=== PATIENT | female | born 1975 | race Caucasian/White ===

== ENCOUNTER 2016-09-14 13:00 | Emergency (ER) | payer OTHER ==
--- NOTE | 2016-09-14 13:21 | ED Physician Documentation ---
PD HPI UPPER EXT INJURY - Stated complaint Stated Complaint: R SHOULDER PX - Chief complaint Chief Complaint: Ext Problem - History obtained from History obtained from: Patient - History of Present Illness Location: Right, Shoulder Type of injury: Other (onset without particular injury.). No: Fall, Twist Timing - onset: Other (onset 4-5 days ago without particular injury, but does use mouse often for work and does not adjust chair height for it.) Timing - duration: Days (1-2) Timing - details: Gradual onset, Still present Improved by: Rest Worsened by: Moving, Palpating Associated symptoms: No: Weakness, Numbness, Swelling Similar symptoms before: Has not had sx before Recently seen: Not recently seen Review of Systems Constitutional: denies: Fever, Chills Skin: denies: Rash, Lesions Musculoskeletal: denies: Neck pain, Back pain Neurologic: denies: Focal weakness, Numbness PD PAST MEDICAL HISTORY - Past Medical History Past Medical History: Yes Endocrine/Autoimmune: HyPOthyroidism Musculoskeletal: None - Past Surgical History Past Surgical History: Yes Ortho: Other /RECEIVABLES SPECIALIST: section - Present Medications Home Medications: Ambulatory Orders Medication Instructions Recorded Confirmed Levothyroxine [Synthroid] 112 mcg PO QDAC 09/14/16 09/14/16 Naproxen 375 mg PO BID #20 tablet 09/14/16 Tramadol HCl 50 mg PO Q6H PRN #15 tablet 09/14/16 - Allergies Allergies/Adverse Reactions: Allergies Allergy/AdvReac Type Severity Reaction Status Date / Time No Known Drug Allergies Allergy Verified 09/14/16 13:08 - Social History Does the pt smoke?: No Smoking Status: Never smoker Does the pt drink ETOH?: No Does the pt have substance abuse?: No - Immunizations Immunizations are current?: No Immunizations: TDAP >10years/unknown - POLST Patient has POLST: No PD ED PE NORMAL - Vitals Vital signs reviewed: Yes - General General: Alert and oriented X 3, Well developed/nourished - Neck Neck: Supple, no meningeal sign, No bony TTP, No adenopathy - Cardiac Cardiac: RRR, No murmur - Respiratory Respiratory: Clear bilaterally - Extremities Extremities: Other (right shoulder with tenderness anteriorly and at mid/end clavicle. No rash nor sores. Rotator cuff movements do not hurt. Pain with abduction and with pushing hand against resistance. ) - Neuro Neuro: No motor deficit, No sensory deficit Results - Vitals Vitals: Oxygen O2 Source Room air - Rads (name of study) clavicle Radiology: Prelim report reviewed, EMP read contemporaneously (normal) PD MEDICAL DECISION MAKING - ED course Complexity details: reviewed results, considered differential (presume tendonitis, and does not seem rotator cuff but more larger muscle to front shoulder. Xray okay of clavicle. Not focally tender at AC. ), d/w patient Departure - Departure Disposition: 01 Home, Self Care Clinical Impression: Right anterior shoulder pain, Tendonitis of shoulder, right Condition: Stable Record reviewed to determine appropriate education?: Yes Instructions: ED Sprain Shoulder Follow-Up: Stephenie Curtis MD [Provider Admit Priv/Credential] - Prescriptions: Naproxen 375 mg PO BID #20 tablet Tramadol HCl 50 mg PO Q6H PRN #15 tablet PRN Reason: Pain Comments: Continue Ibuprofen 2-3 times daily or could try naproxen twice daily instead. Add Tylenol and/or Tramadol as needed for pains. Be sure your seat is at a good height for your shoulder at work (should be in natural height/position as if you wer just standing with shoulders relaxed and then bent elbow up). Recheck if not better over the next week. At least one of your blood pressure readings in the ER today was elevated above the normal level. If you have diagnosed high blood pressure in the past, please be sure you are taking your BP medications and eating low salt diet. If you do not have know high BP, then being high today does not mean it is a intermediate frame tender issue. It might be reactively high to the situation that has you here. You should follow up with your primary care to have the blood pressure checked again in the next few days/week or so to see if it is persistently high. If so, then you may need medication or changes in diet/lifestyle to treat it. Discharge Date/Time: 09/14/16 14:40
[2016-09-14] MEDS ORDERED: ACETAMINOPHEN 325 MG TABLET PO STA (13:38)
[2016-09-14] MEDS ORDERED: ACETAMINOPHEN 325 MG TABLET PO ONE (13:51)
--- NOTE | 2016-09-14 14:08 | XRAY Preliminary Report ---
Exam: XR Clavicle RT IMPRESSION: Normal clavicle radiography. [facility] SITE ID: [id number]
--- NOTE | 2016-09-14 14:11 | XRAY Report ---
EXAM: RIGHT CLAVICLE RADIOGRAPHY EXAM DATE: 09/14/2016 01:54 PM. CLINICAL HISTORY: Right clavicle/shoulder pain for 3 days. COMPARISON: None. TECHNIQUE: 2 views. FINDINGS: Bones: Normal. No fracture or bone lesion. Joints: The acromioclavicular and sternoclavicular joints are normal. No subluxation. Soft Tissues: Normal. No soft tissue swelling. IMPRESSION: Normal clavicle radiography. [facility] Referring Provider Line: [phone] SITE ID: [id number]
[2016-09-14 14:42] VITALS: BP 155/92
== END 2016-09-14 14:40 | disposition home or self-care (01) ==
LOC: ED 13:00
DX: M25.511 Pain in right shoulder (principal); M77.9 Enthesopathy, unspecified; R03.0 Elevated blood-pressure reading, without diagnosis of hypertension; E03.9 Hypothyroidism, unspecified
CPT/HCPCS: 73000; 99283; A9270